=== PATIENT | male | born 1975 | race American Indian/Alaskan Native ===

== ENCOUNTER 2022-05-05 02:48 | Emergency (ER) | payer MEDICAID ==
[2022-05-05 03:21] VITALS: BP 120/85
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
--- NOTE | 2022-05-05 04:00 | XRay Report ---
RIGHT ANKLE 4 VIEWS [id number] INDICATION: fall COMPARISON: None available. FINDINGS: Surgical changes with plate and screws are seen in the distal fibula. 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 Mild ankle degenerative changes. No acute fractures or dislocations are seen. Bony density at the inferior aspect of the medial malleolus probably is an old fracture fragment. Signer Name: Jonathon Andrews MD Signed: 05/05/2022 3:56 AM Workstation Name: [id number]
== END 2022-05-05 04:15 | disposition home or self-care (01) ==
LOC: ED 02:48
DX: S93.401A Sprain of unspecified ligament of right ankle, initial encounter (principal); I10 Essential (primary) hypertension; F17.200 Nicotine dependence, unspecified, uncomplicated; W50.2XXA Accidental twist by another person, initial encounter; Y93.89 Activity, other specified; Y92.89 Other specified places as the place of occurrence of the external cause; Y99.8 Other external cause status
CPT/HCPCS: 99283